=== PATIENT | male | born 1960 | race Caucasian/White ===

== ENCOUNTER 2020-06-07 09:47 | Emergency (ER) | payer OTHER ==
[~2020-06-07] VITALS: Ht 180.3 cm; Wt 97.5 kg
[2020-06-07 09:51] VITALS: BP 178/113
--- NOTE | 2020-06-07 09:59 | NUR ---
PT AMBULATED TO ER BED 11 WITH A STEADY GAIT.
[2020-06-07] MEDS ORDERED: ASPIRIN 81 MG TAB.CHEW PO ONE (10:10)
[2020-06-07] MEDS ORDERED: NITROGLYCERIN 0.4 MG TAB SL ONE (10:10)
--- NOTE | 2020-06-07 10:10 | NUR ---
60 YEAR OLD MALE COMPLAINS OF CHEST PAIN SINCE 8AM. PT STATES CHEST PAIN IS ON/OFF, AND RADIATES THROUGHOUT CHEST TO LEFT ARM. PT STATES SOME SOB, BUT DENIES N/V/D. PT AOX4, BREATHING EVEN AND UNLABORED, SKIN WARM AND DRY. BED IN LOWEST POSITION, LOCKED, BED RAIL UPX1. PT PLACED ON MONITOR, ERMD AWARE OF PT STATUS. PMH - HTN, HLD ALLERGIES - NKA
[2020-06-07] MEDS ORDERED: MORPHINE SULFATE 2 MG/ML SYR IVP ONE (10:15)
[2020-06-07] MEDS ORDERED: ONDANSETRON 4 MG/2 ML VIAL IVP ONE (10:15)
--- NOTE | 2020-06-07 10:15 | NUR ---
1ST DOSE NITRO GIVEN. HR 63, BP 204/91.
--- NOTE | 2020-06-07 10:15 | NUR ---
PT PLACED ON 2L NC.
--- NOTE | 2020-06-07 10:16 | NUR ---
database software technician at bedside.
--- NOTE | 2020-06-07 10:20 | NUR ---
PT STATES STILL SOME PAIN. HR 58, BP 76/43. 2ND DOSE OF NITRO HELD, ERMD MADE AWARE
[2020-06-07] MEDS ORDERED: NACL 0.9% 500 ML IV ONE (10:25)
[2020-06-07 10:30] LABS: BASOPHILS # (AUTO) 0.1 K/uL (0.00-0.22); BASOPHILS % (AUTO) 0.6 % (0.0-2.0); EOSINOPHILS # (AUTO) 0.1 K/uL (0-0.4); EOSINOPHILS % (AUTO) 0.8 % (0.0-4.0); HEMATOCRIT 45.4 % (36-52); HEMOGLOBIN 15.5 g/dL (12.0-18.0); LYMPHOCYTES # (AUTO) 2.3 K/uL (2.0-11.5); LYMPHOCYTES % (AUTO) 25.2 % (20.5-51.1); MEAN CORPUSCULAR HEMOGLOBIN 29 pg (27-31); MEAN CORPUSCULAR HGB CONC 34 g/dL (33-37); MEAN CORPUSCULAR VOLUME 84.2 fL (80-94); MONOCYTES # (AUTO) 0.6 K/uL (0.8-1.0); MONOCYTES % (AUTO) 7.2 % (1.7-9.3); NEUTROPHILS % (AUTO) 66.2 % (42.2-75.2); PLATELET COUNT (AUTO) 242 K/uL (140-450); RED BLOOD CELL COUNT(AUTO) 5.39 MIL/uL (4.20-6.10); RED CELL DISTRIBUTION WIDTH 14.7 % (11.6-13.7)
--- NOTE | 2020-06-07 10:31 | NUR ---
REPORT GIVEN TO LOUIS PETERSON AT [facility]
--- NOTE | 2020-06-07 10:34 | NUR ---
[facility] at bedside to transport the patient to [facility] ED.
--- NOTE | 2020-06-07 10:35 | NUR ---
PT BP 112/67, HR 62. ERMD MADE AWARE
[2020-06-07 10:40] VITALS: BP 112/76
--- NOTE | 2020-06-07 10:40 | NUR ---
PT TAKEN BY [facility] TRANSPORT AT THIS TIME.
[2020-06-07 10:45] LABS: ALBUMIN 4.2 g/dL (3.4-5.0); ANION GAP 14.4 (8-16); CARBON DIOXIDE 25.4 mmol/L (21-32); CREATININE 1.1 mg/dL (0.6-1.3); POTASSIUM 3.8 mmol/L (3.5-5.1); TOTAL BILIRUBIN 0.5 mg/dL (0.0-1.0)
== END 2020-06-07 10:38 | disposition designated cancer center or children's hospital (05) ==
LOC: MED 09:47
DX: I21.3 ST elevation (STEMI) myocardial infarction of unspecified site (principal); I10 Essential (primary) hypertension; E78.00 Pure hypercholesterolemia, unspecified; R73.03 Prediabetes; K21.9 Gastro-esophageal reflux disease without esophagitis; Z90.49 Acquired absence of other specified parts of digestive tract
CPT/HCPCS: 36415; 80053; 83880; 84484; 85025; 85610; 85730; 93005; 96374; 96375; 99291; J1644; J2270; J2405; J7030